=== PATIENT | female | born 1960 | race Two or more races ===

== ENCOUNTER → 2025-07-23 10:30 | Outpatient (REF) | payer MEDICARE, BC, SELFPAY | LOC: PAVMRI 10:30 | PROVIDERS: ATTENDING PHYSICIAN Orthopaedic Surgery; FAMILY PHYSICIAN Family Medicine | DX: S63.602A Unspecified sprain of left thumb, initial encounter (principal); S52.124A Nondisplaced fracture of head of right radius, initial encounter for closed fracture | CPT/HCPCS: 73221 ==